=== PATIENT | male | born 1970 | race Caucasian/White ===

== ENCOUNTER 2017-08-04 11:58 | Emergency (ER) | payer OTHER ==
[2017-08-04] MEDS ORDERED: OXYCODONE/APAP 5/325 TAB PO ONE ×2 (12:06→16:09)
[2017-08-04] MEDS ORDERED: fentaNYL 100 MCG/2 ML INJ ONE (12:18)
[2017-08-04] MEDS ORDERED: fentaNYL 100 MCG/2 ML INJ IVP ONE (12:27)
[2017-08-04] MEDS ORDERED: LORazepam 2 MG/ML INJ IVP ONE (13:03)
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
[2017-08-04] MEDS ORDERED: LET GEL TOPICAL 1 EA SYR TP ONE ×2 (14:09)
[2017-08-04] MEDS ORDERED: NS 1,000 ML IV ONE (14:20)
[2017-08-04] MEDS ORDERED: IOPAMIDOL (ISOVUE-300) 100 ML BTL ONE (14:41)
[2017-08-04] MEDS ORDERED: HYDROmorphONE/DILAUDID 2 MG/ML INJ ONE (15:14)
[2017-08-04] MEDS ORDERED: HYDROmorphONE/DILAUDID 2 MG/ML INJ IVP ONE (15:16)
[2017-08-04] MEDS ORDERED: CYCLOBENZAPRINE 10 MG TAB ONE (16:06)
[2017-08-04] MEDS ORDERED: OXYCODONE/APAP 5/325 TAB ONE (16:07)
[2017-08-04] MEDS ORDERED: CYCLOBENZAPRINE 10 MG TAB PO ONE (16:09)
[2017-08-04 16:26] VITALS: BP 120/88
== END 2017-08-04 16:26 | disposition home or self-care (01) ==
DX: S06.0X0A Concussion without loss of consciousness, initial encounter (principal); S42.021A Displaced fracture of shaft of right clavicle, initial encounter for closed fracture; S39.012A Strain of muscle, fascia and tendon of lower back, initial encounter; S70.211A Abrasion, right hip, initial encounter; S70.311A Abrasion, right thigh, initial encounter; V18.9XXA Unspecified pedal cyclist injured in noncollision transport accident in traffic accident, initial encounter; Y92.410 Unspecified street and highway as the place of occurrence of the external cause; Y99.8 Other external cause status; Y93.55 Activity, bike riding
CPT/HCPCS: 82947-QW; 96374; J1170; J2060; J3010; Q9967

== ENCOUNTER 2017-11-22 12:27 | Emergency (ER) | payer OTHER ==
[2017-11-22 13:57] LABS: PLATELET COUNT 220 10^3/uL (150-400)
--- NOTE | 2017-11-22 13:58 | CPEKG ---
Heart Rate: 66 RR Interval: 909 P-R Interval: 164 QRSD Interval: 90 QT Interval: 380 QTC Interval: 399 P Garrison: 50 QRS Garrison: 35 T Wave Garrison: 6 EKG Severity - NORMAL ECG - EKG Impression: SINUS RHYTHM Electronically Signed By: Annabelle Brush 22-Nov-2017 15:18:46
--- NOTE | 2017-11-22 14:34 | EDPHY ---
H & P Stated Complaint: BLE Swelling, SOB, 10lb weight gain Time Seen by Provider: 11/22/17 13:33 HPI/ROS: CHIEF COMPLAINT: Bilateral lower extremity swelling, shortness of breath HISTORY OF PRESENT ILLNESS: 47-year-old previously healthy male presents with bilateral lower extremity swelling and shortness of breath. 1 week ago he was working for [employer] for [email or web address] manage [place] in [place]. He was on his feet most of the day. Gradually he developed bilateral leg swelling. When he returned home, the swelling did not resolved despite using compression stockings and elevating his legs. Yesterday when walking up stairs, he noticed that he could not get a deep breath and was concerned about congestive heart failure. No prior history of cardiopulmonary disease. REVIEW OF SYSTEMS: complete 10 point ROS negative except at noted in the HPI - Personal History Current Tetanus Diphtheria and Acellular Pertussis (TDAP): Yes - Medical/Surgical History Hx Asthma: No Hx Chronic Respiratory Disease: No Hx Diabetes: No Hx Cardiac Disease: No Hx Renal Disease: No Hx Cirrhosis: No Hx Alcoholism: No Hx HIV/AIDS: No Hx Splenectomy or Spleen Trauma: No Other PMH: Shoulder surgery. 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 - Physical Exam Exam: General Appearance: Alert, pleasant Eyes: Pupils equal and round, no conjunctival pallor or injection ENT, Mouth: Mucous membranes moist Neck: Normal inspection Respiratory: Lungs are clear to auscultation Cardiovascular: Regular rate and rhythm Gastrointestinal: Abdomen is soft and nontender Neurological: A&O, nonfocal, normal gait Skin: Warm and dry Extremities: mild bilateral swelling of the ankles, left greater than right, no calf swelling or tenderness Psychiatric: Mood and affect normal Constitutional: Initial Vital Signs Temperature (C) 36.5 C 11/22/17 12:32 Heart Rate 77 11/22/17 12:32 Respiratory Rate 18 11/22/17 12:32 Blood Pressure 161/104 H 11/22/17 12:32 O2 Sat (%) 93 11/22/17 12:32 O2 Delivery Mode Room Air Allergies/Adverse Reactions: No Known Allergies Allergy (Verified 11/22/17 12:35) Home Medications: Medication Instructions Recorded Meloxicam 11/22/17 Medical Decision Making - Diagnostics EKG Interpretation: EKG interpreted by me reveals normal sinus rhythm, rate 66, no ST or T segment changes. Interpretation: Normal EKG Imaging Results: Imaging Impressions Chest X-Ray 11/22/17 13:33 Impression: 1. Minimal airways disease. No pneumonia. 2. Healed right clavicle fracture. Imaging: I viewed and interpreted images myself ED Course/Re-evaluation: This patient presents with bilateral ankle swelling and dyspnea. Vital signs are normal including oxygen saturation of 95% on room air. Physical exam is normal except for ankle swelling. Stat EKG reveals no evidence of ischemia or dysrhythmia. Chest x-ray independently reviewed by me is unremarkable. No evidence of congestive heart failure. Laboratory studies are unremarkable, including BNP. Results were discussed with the patient. d/w pt, doubt DVT, given no calf swelling/tenderness, understands need for f/u to r/o DVT if these sx develop. He likely has bilateral lower leg swelling secondary to prolonged activity/standing in a hot and humid climate. He was encouraged to use the Efraín hose and elevate his feet whenever possible. Follow up with PCP. Differential Diagnosis: includes though not limited to pulmonary edema, PE, pneumonia, ACS, DVT - Data Points Laboratory Results: Laboratory Results 11/22/17 13:50 11/22/17 13:50 11/22/17 11/22/17 11/22/17 13:52 13:50 13:50 WBC RBC Hgb Hct MCV MCH MCHC RDW Plt Count MPV Neut % (Auto) Lymph % (Auto) [place] % (Auto) Eos % (Auto) Baso % (Auto) Nucleat RBC Rel Count Absolute Neuts (auto) Absolute Lymphs (auto) Absolute Monos (auto) Absolute Eos (auto) Absolute Basos (auto) Absolute Nucleated RBC Immature Gran % Immature Gran # D-Dimer < 0.27 ug/mLFEU ug/mLFEU (0.00-0.50) Sodium 138 mEq/L mEq/L (135-145) Potassium 4.2 mEq/L mEq/L (3.3-5.0) Chloride 107 mEq/L mEq/L (97-110) Carbon Dioxide 24 mEq/l mEq/l (22-31) Anion Gap 7 mEq/L L mEq/L (8-16) BUN 14 mg/dL mg/dL (7-23) Creatinine 0.9 mg/dL mg/dL (0.7-1.3) Estimated GFR > 60 Glucose 94 mg/dL mg/dL (70-100) Calcium 9.2 mg/dL mg/dL (8.5-10.4) POC Troponin I 0.01 ng/mL ng/mL (0.00-0.08) NT-Pro-B Natriuret Pep 250 pg/mL H pg/mL (0-125) 11/22/17 13:50 WBC 5.38 10^3/uL 10^3/uL (3.80-9.50) RBC 4.79 10^6/uL 10^6/uL (4.40-6.38) Hgb 14.6 g/dL g/dL (13.7-17.5) Hct 39.4 % L % (40.0-51.0) MCV 82.3 fL fL (81.5-99.8) MCH 30.5 pg pg (27.9-34.1) MCHC 37.1 g/dL H g/dL (32.4-36.7) RDW 13.1 % % (11.5-15.2) Plt Count 220 10^3/uL 10^3/uL (150-400) MPV 9.3 fL fL (8.7-11.7) Neut % (Auto) 52.1 % % (39.3-74.2) Lymph % (Auto) 34.2 % % (15.0-45.0) [place] % (Auto) 8.6 % % (4.5-13.0) Eos % (Auto) 3.7 % % (0.6-7.6) Baso % (Auto) 0.7 % % (0.3-1.7) Nucleat RBC Rel Count 0.0 % % (0.0-0.2) Absolute Neuts (auto) 2.80 10^3/uL 10^3/uL (1.70-6.50) Absolute Lymphs (auto) 1.84 10^3/uL 10^3/uL (1.00-3.00) Absolute Monos (auto) 0.46 10^3/uL 10^3/uL (0.30-0.80) Absolute Eos (auto) 0.20 10^3/uL 10^3/uL (0.03-0.40) Absolute Basos (auto) 0.04 10^3/uL 10^3/uL (0.02-0.10) Absolute Nucleated RBC 0.00 10^3/uL 10^3/uL (0-0.01) Immature Gran % 0.7 % % (0.0-1.1) Immature Gran # 0.04 10^3/uL 10^3/uL (0.00-0.10) D-Dimer Sodium Potassium Chloride Carbon Dioxide Anion Gap BUN Creatinine Estimated GFR Glucose Calcium POC Troponin I NT-Pro-B Natriuret Pep Point of Care Test Results: Chemistry 11/22/17 13:52 POC Troponin I 0.01 ng/mL ng/mL (0.00-0.08) Departure - Departure Disposition: Home, Routine, Self-Care Clinical Impression: Ankle swelling Qualifiers: Laterality: unspecified laterality Qualified Code(s): M25.473 - Effusion, unspecified ankle Condition: Good Instructions: Leg Edema (ED) Additional Instructions: Wear the compression stockings while swelling persists. Elevate your legs whenever possible. Follow-up with your primary care physician. Return for worsening symptoms or any concerns. Referrals: Gavin Hall, [Doctor of Osteopathy] - 3-4 days, if not improved
[2017-11-22 15:08] VITALS: BP 140/82
== END 2017-11-22 15:06 | disposition home or self-care (01) ==
DX: M25.471 Effusion, right ankle (principal); M25.472 Effusion, left ankle
CPT/HCPCS: 84484-PO